=== PATIENT | male | born 1985 | race Caucasian/White ===

== ENCOUNTER 2018-05-26 03:36 | Emergency (ER) | payer BC ==
[~2018-05-26] VITALS: Ht 180.3 cm; Wt 79.4 kg
[~2018-05-26 03:36] MED LIST: IBUPROFEN 600600 M1 PO; NORCO 5-325 TA1 EACH PO; SENNA-DOCUSATE1 EACH PO; VALTREX1000 MG PO
[2018-05-26] MEDS ORDERED: HURRICAINE ONE1 EACH MUCOUS MEM (03:52)
[2018-05-26 03:53] VITALS: BP 148/88
== END 2018-05-26 04:33 | disposition home or self-care (01) ==
LOC: ER 03:36
DX: J02.0 Streptococcal pharyngitis (principal); F17.210 Nicotine dependence, cigarettes, uncomplicated; Z88.1 Allergy status to other antibiotic agents